=== PATIENT | female | born 1990 | race Caucasian/White ===

== ENCOUNTER 2017-06-21 13:06 | Emergency (ER) | payer MEDICAID ==
[2017-06-21 13:06] VITALS: BMI 36.3
[2017-06-21 13:20] VITALS: BP 116/63; PULSE 84; RESP 16; TEMP 97.8; O2SAT 99
[2017-06-21] MEDS ORDERED: Sodium Chloride 0.9% 1,000 ML IV STA (13:49)
[2017-06-21] MEDS ORDERED: DiphenhydrAMINE 50 mg/ml Inj IVP STA (13:49)
--- NOTE | 2017-06-21 13:59 | ED PDOC ---
HPI: Skin/Bite Injury Time Seen by Provider: 06/21/17 13:24 Chief Complaint (Nursing): Abnormal Skin Integrity Chief Complaint (Provider): rash History Per: Patient History/Exam Limitations: no limitations Additional Complaint(s): 27yo F in ED for eval of acute onset of rash, puritic, diffuse on body sparing the hands/feet/oral mucosa. denies any known allergen. no new soaps, foods, lotions. denies naseua vomiting fever chills malaise sick contacts. admits to last week noting mild sore thoart and lymph node swelling. all of which has resolved. Past Medical History Reviewed: Historical Data, Nursing Documentation, Vital Signs Vital Signs: Last Vital Signs Temp 97.8 F 06/21/17 13:18 Pulse 84 06/21/17 13:18 Resp 16 06/21/17 13:18 BP 116/63 06/21/17 13:18 Pulse Ox 99 06/21/17 14:04 - Medical History PMH: No Chronic Diseases Denies: Depression - Surgical History Surgical History: Cholecystectomy - Family History Family History: States: No Known Family Hx - Immunization History Hx Tetanus Toxoid Vaccination: No Hx Influenza Vaccination: No Hx Pneumococcal Vaccination: No - Home Medications Home Medications: Ambulatory Orders Medication Instructions Recorded Amoxicillin [Amoxil 500 mg Cap] 500 mg PO BID 01/19/17 Amoxicillin [Amoxil 500 mg Cap] 500 mg PO TID #30 cap 01/19/17 Ibuprofen [Motrin Tab] 600 mg PO PRN PRN 01/19/17 Famotidine [Pepcid] 20 mg PO BID #16 tab 06/21/17 Methylprednisolone [Medrol Dose 4 mg PO DAILY #21 mg 06/21/17 Pack (21 tabs)] - Allergies Allergies/Adverse Reactions: Allergies Allergy/AdvReac Type Severity Reaction Status Date / Time No Known Allergies Allergy Verified 01/19/17 00:34 Review of Systems ROS Statement: Except As Marked, All Systems Reviewed And Found Negative Constitutional: Negative for: Fever, Chills, Weakness, Malaise Respiratory: Negative for: Cough, Shortness of Breath Gastrointestinal: Negative for: Nausea, Vomiting, Abdominal Pain Physical Exam - Reviewed Nursing Documentation Reviewed: Yes Vital Signs Reviewed: Yes - Physical Exam Appears: Positive for: Well, Non-toxic, No Acute Distress Skin: Positive for: Warm, Rash (noted diffuse on body sparing palms of feet and soles of feet. papular rash lesions. ) ENT: Positive for: Normal ENT Inspection. Negative for: Sinus Pain/Drainage, Pharyngeal Erythema, Tonsillar Exudate, Tonsillar Swelling Neck: Positive for: Normal, Painless ROM Cardiovascular/Chest: Positive for: Regular Rate, Rhythm Respiratory: Positive for: CNT, Normal Breath Sounds Gastrointestinal/Abdominal: Positive for: Normal Exam, Bowel Sounds, Soft. Negative for: Tenderness Back: Positive for: Normal Inspection Extremity: Positive for: Normal ROM Neurologic/Psych: Positive for: Alert, Oriented - Laboratory Results Result Diagrams: 06/21/17 14:21 06/21/17 14:21 - ECG O2 Sat by Pulse Oximetry: 99 - Progress ED Course And Treament: meds: IV benadrly, solumedrol, pepcid labs: cbc/cmp/rapid strep Medical Decision Making Medical Decision Making: pt symptoms have improved,feels much better negative strep test pt with unrmeaklable labs pt most likely with allergic dermatitis. and will be d.c on pepcid, Benadryl and medrol dose pack with f.u with coordinator of health services. Disposition - Clinical Impression Clinical Impression: Dermatitis - Patient ED Disposition Is Patient to be Admitted: No Counseled Patient/Family Regarding: Diagnosis, Need For Followup, Rx Given - Disposition Referrals: [facility] [Outside] [facility] [Outside] Disposition: Routine/Home Disposition Time: 15:50 Condition: STABLE Prescriptions: Famotidine [Pepcid] 20 mg PO BID #16 tab Methylprednisolone [Medrol Dose Pack (21 tabs)] 4 mg PO DAILY #21 mg Instructions: Contact Dermatitis (ED) Forms: [employer] (Irish)
[2017-06-21 14:45] LABS: BASO # 0.1 K/uL (0.0-0.2); EOS # 0.1 K/uL (0.0-0.7); EOS % 2.6 % (0.0-4.0); LYMPH # 1.6 K/uL (1.0-4.3); LYMPH % 30.3 % (20.0-40.0); MEAN CORPUSCULAR HEMOGLOBIN 29.3 pg (27.0-31.0); MEAN CORPUSCULAR HGB CONC 33.3 g/dL (33.0-37.0); MEAN PLATELET VOLUME 10.5 fl (7.2-11.7); MONO # 0.4 K/uL (0.0-0.8); MONO % 7.3 % (0.0-10.0); NEUT # 3.2 K/uL (1.8-7.0); NEUT % 58.8 % (50.0-75.0); NRBC % 0.2 % (0.0-0.0); RED CELL DISTRIBUTION WIDTH 13.2 % (11.5-14.5); WHITE BLOOD COUNT 5.4 K/uL (4.8-10.8)
[2017-06-21 14:51] LABS: ALB/GLOB RATIO 1.5 (1.0-2.1); ALKALINE PHOSPHATASE 111 U/L (38-126); ALT/SGPT 197 U/L (9-52); AST/SGOT 102 U/L (14-36); BILIRUBIN,TOTAL 0.6 mg/dl (0.2-1.3); BLOOD UREA NITROGEN 11 mg/dl (7-17); CALCIUM 9.4 mg/dL (8.4-10.2); CARBON DIOXIDE 27 mmol/L (22-30); CHLORIDE 99 mmol/L (98-107); GFR AFRICAN-AMERICAN > 60; GLUCOSE,RANDOM 285 mg/dL (65-105); POTASSIUM 4.3 MMOL/L (3.6-5.0); SODIUM 137 mmol/l (132-148); TOTAL PROTEIN 7.3 G/DL (6.3-8.2)
== END 2017-06-21 15:57 | disposition home or self-care (01) ==
LOC: H.ER 13:06
DX: L30.9 Dermatitis, unspecified (principal)
CPT/HCPCS: 80053; 81025; 85025; 87070; 87430; 96361; 96374; 96375; 99282; J1200; J2930; J7040